=== PATIENT | female | born 1955 | race Caucasian/White ===

== ENCOUNTER 2020-02-29 14:56 | Observation (INO) ==
[2020-02-29] MEDS ORDERED: DEXAMETHASONE SODIUM PHOSP/PF 10 MG/ML VIAL IV ONE (15:07)
[2020-02-29] MEDS ORDERED: ONDANSETRON HCL/PF 2 MG/ML VIAL ONE (15:20)
[2020-02-29 15:27] LABS: Hemoglobin 16.2 gm/dL (12.5-16.0); Mean Cell Volume 84.9 fl (78-100); Mean Corpuscular Hemoglobin 27.5 pg (27-31); Mean Corpuscular Hgb Conc 32.4 g/dl (32-36); Mean Platelet Volume 10.5 fl (8-12.5); Neutrophil % 57.2 % (42-75.0); Platelet Count 240 K/mm3 (150-450); Red Blood Count 5.89 M/mm3 (4.2-5.4); White Blood Count 5.2 K/mm3 (4.0-10.5)
[2020-02-29] MEDS ORDERED: ONDANSETRON HCL/PF 2 MG/ML VIAL IV ONE (15:29)
--- NOTE | 2020-02-29 15:55 | ERNOTE ---
Dyspnea - Date Date of Service: 02/29/20 - General Presenting Symptoms: shortness of breath Time Seen by Provider: 02/29/20 15:03 Source: patient Exam Limitations: no limitations - Immun/Allergies/Home Medications Immunizations: IMMUNIZATION HX Immunizations Up to Date Yes History of Influenza Vaccine Yes Hx Pneumococcal Vaccination No Allergies/Adverse Reactions: Allergies No Known Allergies Allergy (Verified 02/29/20 14:57) Home Medications: HOME MEDICATIONS celecoxib 200 mg capsule 200 mg PO BID 06/21/18 [Last Taken Unknown] mecobalamin (vitamin B12) 1,000 mcg chewable tablet 1,000 mcg PO DAILY 12/13/19 [Last Taken Unknown] multivitamin 1 cap PO DAILY 12/13/19 [Last Taken Unknown] multivitamin-folic acid 400 mcg-biotin 2,000 mcg tablet 1 tab PO DAILY 12/13/19 [Last Taken Unknown] fluticasone propionate 230 mcg-salmeterol 21 mcg/actuation HFA inhaler 2 inh IH BID #24 g 01/10/20 [Last Taken Unknown] alprazolam 0.25 mg tablet 0.25 mg PO BID-TID PRN #30 tab 01/18/20 [Last Taken Unknown] metoprolol succinate 100 mg tablet,extended release 24 hr See Rx Instructions .ROUTE .COMPLEX #90 tablet 01/23/20 [Last Taken Unknown] albuterol sulfate 90 mcg/actuation aerosol inhaler 2 inh IH Q4H PRN #8.5 g 01/28/20 [Last Taken Unknown] escitalopram oxalate 10 mg tablet See Rx Instructions .ROUTE .COMPLEX #90 tablet 02/18/20 [Last Taken Unknown] - History of Present Illness Narrative: Patient presents to the ED feeling "terrible". She relates that she has not felt well since Tuesday but felt significantly worse today. Hurting all over, myalgias, fatigue. Cough. No CP or abdominal pain. Her has positive Covid this week. She has been exposed. She has never felt this bad. Severity: severe Treatment FINANCIAL PLANNING ASSISTANT: none Initiating event: Reports: upper resp illness Frequency of episodes: Reports: no prior episodes Modifying Factors - (Improves): Reports: nothing Modifying Factors (Worsens): Reports: nothing Associated Symptoms-Dyspnea: Reports: fever/chills, cough. Denies: wheezing Prior Treatment: Denies: recently seen Review of Systems - Review of Systems Constitutional: Present: chills EYE: Present: no symptoms reported ENT: Present: nose congestion Respiratory: Present: See HPI Cardiology: Absent: chest pain Gastrointestinal/Abdominal: Absent: abdominal pain Genitourinary: Present: no symptoms reported Skin: Absent: rash All Other Systems: All systems neg except as marked Medical History (Last Reviewed 02/29/20 @ 15:53 by Stef Rico MD) Arthritis (Chronic) Onset Date: ~2016 seevicky Newman History of foot fracture (Resolved) Onset Date: ~2015 Hypertension (Chronic) Onset Date: Unknown Asthma, intermittent (Chronic) Onset Date: Unknown Anxiety disorder (Chronic) Onset Date: Unknown Surgical History: Surgical History (Last Reviewed 02/29/20 @ 15:53 by Stef Rico MD) History of carpal tunnel surgery of left wrist Onset Date: Unknown History of section Onset Date: ~1974 History of dilation and curettage Onset Date: ~1980 History of lumbar discectomy Onset Date: ~1998 L5 Family History: Family History (Last Reviewed 02/29/20 @ 15:53 by Stef Rico MD) Mother Diabetes Father CVA (cerebral vascular accident) Hypertension Social History: (Last Reviewed 02/29/20 @ 15:53 by Stef Rico MD) Social History: adopted: No foster care: No Marital status: lives independently: Yes household members: spouse number of children: 1 caregiver/support person: No Service: No Tobacco: Smoking Status: Former smoker Alcohol: alcohol intake: current alcohol intake frequency: a few times a month Substance Use: substance use type: does not use Dietary Habits: caffeine: Yes Physical Exam - Physical Exam General Appearance: Present: alert, mild distress Head Exam: Present: normal inspection, no evidence of injury Eye Exam: Normal inspection: bilateral, PERRL: bilateral Ears, Nose, Throat: Present: normal ENT inspection Neck: Present: normal inspection Respiratory: Present: other - diminished bilateraly. Absent: accessory muscle use, wheezing Cardiovascular/Chest: Present: tachycardia Gastrointestinal/Abdominal: Present: normal bowel sounds, nontender, nondistended, soft Back Exam: Absent: CVA tenderness (R), CVA tenderness (L) Extremity Exam: Present: no edema Neurological Exam: Present: alert, no motor/sensory deficits Skin Exam: Present: normal color, warm/dry Progress - Results and Orders Patient's Lab Results:: I have reviewed the patient's lab results. - Vital Signs Patient's Vital Signs:: I have reviewed the patient's vital signs. Vital Signs: Vital Signs 02/29/20 14:56 02/29/20 15:23 Temperature 36.0 C Pulse Rate 124 H 108 H Respiratory Rate 36 H 28 H Blood Pressure 175/99 H O2 Sat by Pulse Oximetry 88 L 94 - EKG EKG #1 EKG: NSR EKG read: Interp. by me EKG Comments: NSR rate 99. Non-specific ST/T wave changes, no STEMI noted. - X-Ray X-Ray #1 X-Ray: chest Interpretation: Interp. by me X-ray Comments: I reviewed CXR image as well as official radiology report. - Progress/Reassessment Chief Complaint: Dyspnea Progress Note-Subjective: 02/29/20 17:23 Patient has new oxygen requirement. IV Decadron given. I spoke with Dr Vega who will admit, she asked me to begin Remdesivir and I started that with initial dose of 200mg at her request. Patient agreeable. Departure Clinical Impression: Pneumonia due to 2019 novel coronavirus, Hypoxia - Departure Disposition: Still a patient Condition: Stable
[2020-02-29 16:16] LABS: ALT 49 U/L (19-67); AST 42 U/L (0-48); Alkaline Phosphatase * 72 U/L (50-170); Anion Gap 16.5 mmol/L (6.8-13.8); BUN/Creatinine Ratio 24.4 (9.0-21.6); Bilirubin, Total 0.6 mg/dL (0.0-1.1); Blood Urea Nitrogen 20 mg/dL (3-23); Ca. Corrected For Albumin 8.8 mg/dL (8.4-10.2); Calcium * 9.1 mg/dL (7.9-10.9); Chloride 101 mmol/L (97-106); Glucose * 150 mg/dL (70-110); Potassium 3.5 mmol/L (3.4-4.6); Sodium 139 mmol/L (132-142); Total Protein 8.5 gm/dL (6.2-8.2); Troponin I Less than 0.017 ng/mL (0.00-0.10)
[2020-02-29 16:30] LABS: Urine Bilirubin 3 mg/dl (NEGATIVE); Urine Blood Negative /ul (NEGATIVE); Urine Ketone 15 mg/dL (NEGATIVE); Urine Nitrite Negative (NEGATIVE); Urine Protein 100 mg/dL (NEGATIVE); Urine Specific Gravity >=1.030 SP.GR. (1.005-1.010); Urine Urobilinogen Normal (NORMAL); Urine pH 5.5 pH (5.0-7.0)
[2020-02-29] MEDS ORDERED: cefTRIAXone SODIUM 1,000 MG/100 ML BAG IV ONE (16:52)
[2020-02-29] MEDS ORDERED: MORPHINE SULFATE 4 MG/ML SYRG IV ONE (16:52)
[2020-02-29 16:59] LABS: Urine Appearance Slightly Cloudy (CLEAR); Urine Color Dark Yellow; Urine RBC TRACE /hpf (0-5); Urine WBC TRACE /hpf (0-5)
[2020-02-29 17:00] LABS: Urine Bacteria 3+; Urine Yeast TRACE
[2020-02-29 17:01] LABS: Urine Mucus Moderate - 2+
[2020-02-29] MEDS ORDERED: REMDESIVIR 200 MG in NORMAL SALINE 210 ML IV ONE (17:21)
[2020-02-29] MEDS ORDERED: ALBUTEROL SULFATE 200 PUFF INHALER IH PRN (20:25)
[2020-02-29] MEDS ORDERED: ALPRAZolam 0.25 MG TABLET PO PRN (20:25)
--- NOTE | 2020-02-29 20:26 | HP ---
Chief Complaint - Chief Complaint Date of Service: 02/29/20 Time of Service: 20:16 Chief Complaint: shortness of breath History of Present Illness: Patient presented to the ED after several days of shortness of breath and overall feeling unwell. She has a PMHx of asthma, COPD, HTN. Her got tested for COVID 4 days prior, and came back positive yesterday. She has not had a fever, and cough has been mild. Appetite decreased. In the ED, her COVID test was also positive. She initially was oxygenating at 88% on room air, and improved to mid 90's on 2 L NC. D dimer not elevated. CXR shows infiltrates. She was given a dose of decadron and remdisivir and admitted for further treatment. Medical History (Last Reviewed 02/29/20 @ 15:53 by Stef Rico MD) Arthritis (Chronic) Onset Date: ~[address] Newman History of foot fracture (Resolved) Onset Date: ~2015 Hypertension (Chronic) Onset Date: Unknown Asthma, intermittent (Chronic) Onset Date: Unknown Anxiety disorder (Chronic) Onset Date: Unknown Surgical History: Surgical History (Last Reviewed 02/29/20 @ 15:53 by Stef Rico MD) History of carpal tunnel surgery of left wrist Onset Date: Unknown History of section Onset Date: ~1974 History of dilation and curettage Onset Date: ~1980 History of lumbar discectomy Onset Date: ~1998 L5 Family History: Family History (Last Reviewed 02/29/20 @ 15:53 by Stef Rico MD) Mother Diabetes Father CVA (cerebral vascular accident) Hypertension Social History: (Last Reviewed 02/29/20 @ 15:53 by Stef Rico MD) Social History: adopted: No foster care: No Marital status: lives independently: Yes household members: spouse number of children: 1 caregiver/support person: No Service: No Tobacco: Smoking Status: Former smoker Alcohol: alcohol intake: current alcohol intake frequency: a few times a month Substance Use: substance use type: does not use Dietary Habits: caffeine: Yes Review Of Systems (GEN) - Review of Systems Generalized/Overall Review: Absent: Fever Respiratory: Present: Cough, Shortness of Breath Cardiac: Absent: Chest Pain, Edema Abdominal: Present: Other - decreased appetite. Absent: Vomiting Genitourinary: Present: No Symptoms Reported Skin: Present: No Symptoms Reported Immunizations: IMMUNIZATION HX Immunizations Up to Date Yes History of Influenza Vaccine Yes Hx Pneumococcal Vaccination No Allergies/Adverse Reactions: Allergies Allergy/AdvReac Type Severity Reaction Status Date / Time No Known Allergies Allergy Verified 02/29/20 14:57 Home Medications: HOME MEDICATIONS celecoxib 200 mg capsule 200 mg PO BID 06/21/18 [Last Taken Unknown] mecobalamin (vitamin B12) 1,000 mcg chewable tablet 1,000 mcg PO DAILY 12/13/19 [Last Taken Unknown] multivitamin 1 cap PO DAILY 12/13/19 [Last Taken Unknown] multivitamin-folic acid 400 mcg-biotin 2,000 mcg tablet 1 tab PO DAILY 12/13/19 [Last Taken Unknown] fluticasone propionate 230 mcg-salmeterol 21 mcg/actuation HFA inhaler 2 inh IH BID #24 g 01/10/20 [Last Taken Unknown] alprazolam 0.25 mg tablet 0.25 mg PO BID-TID PRN #30 tab 01/18/20 [Last Taken Unknown] metoprolol succinate 100 mg tablet,extended release 24 hr See Rx Instructions .ROUTE .COMPLEX #90 tablet 01/23/20 [Last Taken Unknown] albuterol sulfate 90 mcg/actuation aerosol inhaler 2 inh IH Q4H PRN #8.5 g 01/28/20 [Last Taken Unknown] escitalopram oxalate 10 mg tablet See Rx Instructions .ROUTE .COMPLEX #90 tablet 02/18/20 [Last Taken Unknown] Exam - Exam Vital Signs: Vital Signs - Last Taken Temp 36.2 C 02/29/20 19:00 Pulse 91 02/29/20 19:00 Resp 18 02/29/20 19:00 BP 152/109 H 02/29/20 19:00 Pulse Ox 98 02/29/20 19:00 Constitutional: Present: Alert, Cooperative, No distress Respiratory: Present: lungs clear, normal breath sounds, no respiratory distress, other - oxygenating at 99% on 2L Cardiovascular/Chest: Present: regular rate, rhythm Abdomen: Present: soft, nontender Extremity: Absent: lower extremity edema Neurologic: Present: normal mood/affect Eye contact: Present: cooperative, good eye contact Diagnostic Studies: Abnormal Lab Results 02/29/20 02/29/20 02/29/20 Range/Units 15:06 15:15 15:47 RBC 5.89 H (4.2-5.4) M/mm3 Hgb 16.2 H (12.5-16.0) gm/dL Hct 50.0 H (37.0-47.0) % Immature Gran % (Auto) 0.60 H (0.001-0.429) % Monocytes % 13.6 H (0.0-9) % Lymphocytes # 1.44 L (1.5-3.5) k/mm3 Anion Gap 16.5 H (6.8-13.8) mmol/L BUN/Creatinine Ratio 24.4 H (9.0-21.6) Random Glucose 150 H (70-110) mg/dL Total Protein 8.5 H (6.2-8.2) gm/dL Urine Protein (NEGATIVE) mg/dL Urine Bilirubin (NEGATIVE) mg/dl Urine WBC (0-5) /hpf Ur Epithelial Cells (0-5) /hpf Urine Bacteria (NONE) Urine Mucus (NONE) SARS-CoV-2 (PCR) Detected H (NotDetected) 02/29/20 Range/Units 16:07 RBC (4.2-5.4) M/mm3 Hgb (12.5-16.0) gm/dL Hct (37.0-47.0) % Immature Gran % (Auto) (0.001-0.429) % Monocytes % (0.0-9) % Lymphocytes # (1.5-3.5) k/mm3 Anion Gap (6.8-13.8) mmol/L BUN/Creatinine Ratio (9.0-21.6) Random Glucose (70-110) mg/dL Total Protein (6.2-8.2) gm/dL Urine Protein 100 H (NEGATIVE) mg/dL Urine Bilirubin 3 H (NEGATIVE) mg/dl Urine WBC Trace H (0-5) /hpf Ur Epithelial Cells 10-25 H (0-5) /hpf Urine Bacteria 3+ H (NONE) Urine Mucus Moderate - 2+ H (NONE) SARS-CoV-2 (PCR) (NotDetected) Laboratory Results WBC 5.2 K/mm3 (4.0-10.5) 02/29/20 15:15 RBC 5.89 M/mm3 (4.2-5.4) H 02/29/20 15:15 Hgb 16.2 gm/dL (12.5-16.0) H 02/29/20 15:15 Hct 50.0 % (37.0-47.0) H 02/29/20 15:15 MCV 84.9 fl (78-100) 02/29/20 15:15 MCH 27.5 pg (27-31) 02/29/20 15:15 MCHC 32.4 g/dl (32-36) 02/29/20 15:15 RDW 14.0 % (11.5-14.0) 02/29/20 15:15 Plt Count 240 K/mm3 (150-450) 02/29/20 15:15 MPV 10.5 fl (8-12.5) 02/29/20 15:15 Immature Gran % (Auto) 0.60 % (0.001-0.429) H 02/29/20 15:15 Immature Gran # (Auto) 0.03 K/mm3 (0.000-0.0310) 02/29/20 15:15 Neutrophils % 57.2 % (42-75.0) 02/29/20 15:15 Lymphocytes % 28.0 % (20-51) 02/29/20 15:15 Monocytes % 13.6 % (0.0-9) H 02/29/20 15:15 Eosinophils % 0.0 % (0.0-3.0) 02/29/20 15:15 Basophils % 0.6 % (0.0-1.0) 02/29/20 15:15 Nucleated RBC % 0.0 k/mm3 (0-1) 02/29/20 15:15 Neutrophils # 3.0 K/mm3 (1.3-6.0) 02/29/20 15:15 Lymphocytes # 1.44 k/mm3 (1.5-3.5) L 02/29/20 15:15 Monocytes # 0.7 k/mm3 (0.0-1.0) 02/29/20 15:15 Eosinophils # 0.0 k/mm3 (0.0-0.7) 02/29/20 15:15 Absolute Basophils 0.0 k/mm3 (0.0-0.1) 02/29/20 15:15 D-Dimer 0.44 ug/mL (0.19-0.49) 02/29/20 15:15 Sodium 139 mmol/L (132-142) 02/29/20 15:47 Plasma Sodium 140 mmol/L (130-142) 02/29/20 15:47 Potassium 3.5 mmol/L (3.4-4.6) 02/29/20 15:47 Chloride 101 mmol/L (97-106) 02/29/20 15:47 Carbon Dioxide 25.0 mmol/L (24-32.6) 02/29/20 15:47 Anion Gap 16.5 mmol/L (6.8-13.8) H 02/29/20 15:47 BUN 20 mg/dL (3-23) 02/29/20 15:47 Creatinine 0.82 mg/dL (0.4-1.4) 02/29/20 15:47 Est GFR (Non-Af Amer) 75 mL/min (60-130) 02/29/20 15:47 BUN/Creatinine Ratio 24.4 (9.0-21.6) H 02/29/20 15:47 Random Glucose 150 mg/dL (70-110) H 02/29/20 15:47 Lactic Acid, Venous 1.6 mmol/L (0.4-2.0) 02/29/20 15:15 Calcium 9.1 mg/dL (7.9-10.9) 02/29/20 15:47 Calcium Adj for Albumin 8.8 mg/dL (8.4-10.2) 02/29/20 15:47 Total Bilirubin 0.6 mg/dL (0.0-1.1) 02/29/20 15:47 AST 42 U/L (0-48) 02/29/20 15:47 ALT 49 U/L (19-67) 02/29/20 15:47 Alkaline Phosphatase 72 U/L (50-170) 02/29/20 15:47 Troponin I Less than 0.017 ng/mL (0.00-0.10) 02/29/20 15:47 Total Protein 8.5 gm/dL (6.2-8.2) H 02/29/20 15:47 Albumin 4.0 gm/dl (3.4-5.0) 02/29/20 15:47 Procalcitonin 0.06 ng/mL (0.05-0.50) 02/29/20 15:15 Urine Color Dark yellow 02/29/20 16:07 Urine Appearance Slightly cloudy (CLEAR) 02/29/20 16:07 Urine pH 5.5 pH (5.0-7.0) 02/29/20 16:07 Ur Specific [place] >=1.030 SP.GR. (1.005-1.010) 02/29/20 16:07 Urine Protein 100 mg/dL (NEGATIVE) H 02/29/20 16:07 Urine Glucose (UA) Negative mg/dL (NEGATIVE) 02/29/20 16:07 Urine Ketones 15 mg/dL (NEGATIVE) 02/29/20 16:07 Urine Blood Negative /ul (NEGATIVE) 02/29/20 16:07 Urine Nitrate Negative (NEGATIVE) 02/29/20 16:07 Urine Bilirubin 3 mg/dl (NEGATIVE) H 02/29/20 16:07 Urine Ictotest Negative (NEGATIVE) 02/29/20 16:07 Prot Sulfosalicylic Acd 1+ mg/dL (0) 02/29/20 16:07 Urine Urobilinogen Normal EU/dl (NORMAL) 02/29/20 16:07 Ur Leukocyte Esterase Negative /ul (NEGATIVE) 02/29/20 16:07 Urine RBC Trace /hpf (0-5) 02/29/20 16:07 Urine WBC Trace /hpf (0-5) H 02/29/20 16:07 Ur Epithelial Cells 10-25 /hpf (0-5) H 02/29/20 16:07 Urine Bacteria 3+ (NONE) H 02/29/20 16:07 Urine Mucus Moderate - 2+ (NONE) H 02/29/20 16:07 Urine Yeast Trace (NONE) 02/29/20 16:07 Urine Culture Comments No culture indicated 02/29/20 16:07 SARS-CoV-2 (PCR) Detected (NotDetected) H 02/29/20 15:06 Assessment/Plan - Narrative Narrative: Vitals are currently normal, and she is comfortable appearing. Continue remdesivir while hospitalized, or for 5 days, whichever ends first. Will also continue 6 mg po dexamethasone. Wean oxygen as tolerated. I decreased her oxygen to 1 L during my exam, and she remained at 99%. She may be able to DC home tomorrow. Continue inhalers for her asthma. - Assessment/Plan (1) Pneumonia due to 2019 novel coronavirus Problem: Acute (2) Hypoxia Problem: Acute (3) Hypertension Problem: Chronic (4) Asthma, intermittent Problem: Chronic (5) Anxiety disorder Problem: Chronic
[2020-02-29] MEDS: FLUTICASONE PROPION/SALMETEROL 14 PUFF DISK.W.DEV IH SCH (21:35)
[2020-02-29] MEDS ORDERED: METOPROLOL SUCCINATE 100 MG TABLET.SA ONE (21:35)
[2020-02-29] MEDS: CELECOXIB 100 MG CAPSULE PO SCH (21:35)
[2020-03-01 07:13] LABS: Albumin * 3.5 gm/dl (3.4-5.0); Anion Gap 13.9 mmol/L (6.8-13.8); BUN/Creatinine Ratio 32.1 (9.0-21.6); Bilirubin, Total 0.4 mg/dL (0.0-1.1); Ca. Corrected For Albumin 9.1 mg/dL (8.4-10.2); Carbon Dioxide 27.9 mmol/L (24-32.6); Potassium 3.8 mmol/L (3.4-4.6); Total Protein 7.7 gm/dL (6.2-8.2)
[2020-03-01] MEDS ORDERED: ALPRAZolam 0.25 MG TABLET PO PRN (07:15)
[2020-03-01] MEDS: CELECOXIB 100 MG CAPSULE PO SCH (08:17)
[2020-03-01] MEDS: FLUTICASONE PROPION/SALMETEROL 14 PUFF DISK.W.DEV IH SCH (08:20)
[2020-03-01] MEDS ORDERED: METOPROLOL SUCCINATE 100 MG TABLET.SA PO SCH ×2 (09:00)
[2020-03-01] MEDS ORDERED: DEXAMETHASONE 2 MG TABLET PO SCH (09:00)
[2020-03-01] MEDS ORDERED: CYANOCOBALAMIN 1,000 MCG TABLET PO SCH (09:00)
[2020-03-01] MEDS ORDERED: ESCITALOPRAM OXALATE 10 MG TAB PO SCH (09:00)
--- NOTE | 2020-03-01 11:05 | DS ---
(1) Pneumonia due to 2019 novel coronavirus Problem: Acute (2) Hypoxia Problem: Resolved (3) Hypertension Problem: Chronic (4) Asthma, intermittent Problem: Chronic (5) Anxiety disorder Problem: Chronic Date of Discharge:: 03/01/20 Hospital Course: Patient presented to the ED after several days of shortness of breath and over all feeling unwell. She has a PMHx of asthma, COPD, HTN. Her got tested for COVID 4 days prior, and came back positive the day prior to admission. She has not had a fever, and cough has been mild. Appetite decreased. In the ED, her COVID test was also positive. She initially was oxygenating at 88% on room air, and improved to mid 90's on 2 L NC. D dimer not elevated. CXR shows infiltrates. She was given a dose of decadron and remdisivir and admitted for further treatment. She was able to wean from oxygen the first night of admission, and was discharged the following day. Will discharge to complete 5 days of Decadron and follow-up through phone or video visit with her PCP in 2 to 3 days. Procedures Performed: none Results and Findings: Lab Pending Results 02/29/20 15:06: SARS-CoV-2 (PCR) Detected H 02/29/20 15:15: WBC 5.2, RBC 5.89 H, Hgb 16.2 H, Hct 50.0 H, MCV 84.9, MCH 27.5, MCHC 32.4, RDW 14.0, Plt Count 240, MPV 10.5, Immature Gran % (Auto) 0.60 H, Immature Gran # (Auto) 0.03, Neutrophils % 57.2, Lymphocytes % 28.0, Monocytes % 13.6 H, Eosinophils % 0.0, Basophils % 0.6, Nucleated RBC % 0.0, Neutrophils # 3.0, Lymphocytes # 1.44 L, Monocytes # 0.7, Eosinophils # 0.0, Absolute Basophils 0.0 02/29/20 15:15: D-Dimer 0.44 02/29/20 15:15: Lactic Acid, Venous 1.6 02/29/20 15:15: Procalcitonin 0.06 02/29/20 15:47: Sodium 139, Plasma Sodium 140, Potassium 3.5, Chloride 101, Carbon Dioxide 25.0, Anion Gap 16.5 H, BUN 20, Creatinine 0.82, Est GFR (Non-Af Amer) 75, BUN/Creatinine Ratio 24.4 H, Random Glucose 150 H, Calcium 9.1, Calcium Adj for Albumin 8.8, Total Bilirubin 0.6, AST 42, ALT 49, Alkaline Phosphatase 72, Troponin I Less than 0.017, Total Protein 8.5 H, Albumin 4.0 02/29/20 16:07: Urine Color Dark yellow, Urine Appearance Slightly cloudy, Urine pH 5.5, Ur Specific [place] >=1.030, Urine Protein 100 H, Urine Glucose (UA) Negative, Urine Ketones 15, Urine Blood Negative, Urine Nitrate Negative, Urine Bilirubin 3 H, Urine Ictotest Negative, Prot Sulfosalicylic Acd 1+, Urine Urobilinogen Normal, Ur Leukocyte Esterase Negative, Urine RBC Trace, Urine WBC Trace H, Ur Epithelial Cells 10-25 H, Urine Bacteria 3+ H, Urine Mucus Moderate - 2+ H, Urine Yeast Trace, Urine Culture Comments No culture indicated 03/01/20 06:45: Sodium 140, Plasma Sodium 141, Potassium 3.8, Chloride 102, Carbon Dioxide 27.9, Anion Gap 13.9 H, BUN 26 H, Creatinine 0.81, Est GFR (Non- Af Amer) 76, BUN/Creatinine Ratio 32.1 H, Random Glucose 135 H, Calcium 9.0, Calcium Adj for Albumin 9.1, Total Bilirubin 0.4, AST 36, ALT 47, Alkaline Phosphatase 60, Total Protein 7.7, Albumin 3.5 Discharge Location: Home Disposition: Home self-care Condition: Stable Discharge Activity: Activity as tolerated Discharge Diet: General/regular food Referrals: Nuvia Castañeda MD [Primary Care Provider] - 03/04/20 Prescriptions (Any new or edited meds): Dexamethasone [Decadron] 6 mg PO DAILY 3 Days #9 tab Transmission Status: Pending to [facility], [place], [place] Complete Home Medications List: Complete Home Medication List: celecoxib 200 mg capsule 200 mg PO BID 06/21/18 mecobalamin (vitamin B12) 1,000 mcg chewable tablet 1,000 mcg PO DAILY 12/13/19 multivitamin 1 cap PO DAILY 12/13/19 multivitamin-folic acid 400 mcg-biotin 2,000 mcg tablet 1 tab PO DAILY 12/13/19 fluticasone propionate 230 mcg-salmeterol 21 mcg/actuation HFA inhaler 2 inh IH BID #24 g 01/10/20 alprazolam 0.25 mg tablet 0.25 mg PO BID-TID PRN #30 tab 01/18/20 albuterol sulfate 90 mcg/actuation aerosol inhaler 2 inh IH Q4H PRN #8.5 g 01/28/20 Escitalopram Oxalate [Lexapro] 10 mg PO DAILY 02/29/20 Metoprolol Succinate 100 mg PO DAILY 02/29/20 Dexamethasone [Decadron] 6 mg PO DAILY 3 Days #9 tab 03/01/20 Escitalopram Oxalate [Lexapro] 10 mg PO DAILY tab 03/01/20 Metoprolol Succinate [Toprol Xl] 100 mg PO DAILY tablet. 03/01/20 Forms: Patient Portal Registration
[2020-03-01 11:52] VITALS: BP 139/78
[2020-03-01] MEDS ORDERED: REMDESIVIR 100 MG in NORMAL SALINE 230 ML IV SCH (16:00)
== END 2020-03-01 12:12 | disposition home or self-care (01) ==
LOC: MS 14:56 → ER 14:56 → MS 18:05
PROVIDERS: ADMIT Family Medicine; ATTEND Family Medicine